=== PATIENT | female | born 1995 | race Two or more races ===

== ENCOUNTER 2023-12-26 18:50 | Emergency (ER) | payer BC ==
[~2023-12-26] VITALS: Ht 167.6 cm; Wt 82.0 kg
[2023-12-26 19:01] VITALS: O2SAT 99
[2023-12-26] MEDS ORDERED: CLINDAMYCIN 900 MG in DEXTROSE 5% WATER 50 ML IV ONE (19:15)
[2023-12-26] MEDS: TETANUS, DIPHTHERIA, PERTUSSIS VAC/PF 0.5ML (>10YR OLD) IM ONE (19:29)
[2023-12-26] MEDS: HYDROMORPHONE HCL/PF 2MG/ML INJ IV ONE ×2 (19:38→21:43)
[2023-12-26] MEDS: KETOROLAC 15MG/ML VIAL IV ONE (20:09)
[2023-12-26] MEDS: CLINDAMYCIN 900MG PREMIX 50 ML IV SCH (20:09)
[2023-12-26 21:12] VITALS: TEMP 98.4
[2023-12-26 21:43] VITALS: BP 122/71; PULSE 77; RESP 16
== END 2023-12-26 22:06 | disposition home or self-care (01) ==
LOC: ER 18:50
DX: S82.891B Other fracture of right lower leg, initial encounter for open fracture type I or II (principal); W18.39XA Other fall on same level, initial encounter; Y93.89 Activity, other specified; Y92.89 Other specified places as the place of occurrence of the external cause; Y99.8 Other external cause status
CPT/HCPCS: 73610; 96365; 96375; 96376; 99285; J3490; J1885; J1170; Z7610 ×3; J7060